=== PATIENT | female | born 1980 | race Caucasian/White ===

== ENCOUNTER 2017-08-19 08:01 | Day surgery (SDC) | payer BC ==
[2017-08-07 13:40] VITALS: BMI 29.0
--- NOTE | 2017-08-07 14:14 | PAT Medication Instructions ---
Service Date Aug 07, 2017. Current Home Medication List Fluconazole (Diflucan), 200 MG PO QPM Levothyroxine Sodium (Synthroid), 175 MCG PO Q2D Levothyroxine Sodium (Levothyroxine Sodium), 1 TAB PO Q2D Linaclotide (Linzess), 1 TAB PEG QAM Montelukast Sodium (Montelukast Sodium), 1 TAB PO QAM Pantoprazole (Protonix), 40 MG PO QPM Terbinafine Hcl (Terbinafine Hcl), 1 TAB PO QAM Medication Instructions For Your Scheduled Surgery - Continue as directed: Levothyroxine Sodium (Levothyroxine Sodium), 1 TAB PO Q2D - Hold the following medications the morning of surgery: Linaclotide (Linzess), 1 TAB PEG QAM Montelukast Sodium (Montelukast Sodium), 1 TAB PO QAM - Take the following medications as scheduled the night before surgery: Terbinafine Hcl (Terbinafine Hcl), 1 TAB PO QAM Pantoprazole (Protonix), 40 MG PO QAM - Take the following medications as scheduled the night before surgery: Pantoprazole (Protonix), 40 MG PO QPM Fluconazole (Diflucan), 200 MG PO QPM If you have any questions please call us at [phone] or [phone] or [phone]
[2017-08-07 14:46] LABS: BASO % 0.5 %; BASO ABS # 0.04 K/uL (0-0.2); COMPLETE YES; EOS % 2.2 %; HEMATOCRIT 42.5 % (37-47); IG% 0.1 %; LYMPH % 27.1 %; MEAN CELL VOLUME 87.8 fL (80-100); MEAN CORPUSCULAR HEMOGLOBIN 30.8 pg (25-34); MEAN CORPUSCULAR HGB CONC 35.1 g/dl (32-36); MEAN PLATELET VOLUME 10.1 fL (7.4-10.4); MONO % 8.5 %; NEUT % 61.6 %; PLATELET COUNT 247 K/uL (130-400); RED BLOOD COUNT 4.84 M/uL (4.2-5.4); WHITE BLOOD COUNT 7.76 K/uL (4.8-10.8)
--- NOTE | 2017-08-07 14:56 | DIAGNOSTIC IMAGING REPORT ---
CHEST PREADMISSION(PA/LAT) CLINICAL HISTORY: PAT preoperative evaluation COMPARISON STUDY: 01/19/2014 FINDINGS: The bones soft tissues and hemidiaphragms are normal. The cardiomediastinal silhouette is normal. The lungs are clear. The pulmonary vasculature is normal. IMPRESSION: Negative chest. The above report was generated using voice recognition software. It may contain grammatical, syntax or spelling errors. Electronically signed by: Todd Rodriguez M.D. 08/07/2017 2:55 PM Dictated Date/Time: 08/07/2017 2:55 PM
[2017-08-07 15:29] LABS: BUN/CREATININE RATIO 14.1 (10-20); CALCIUM 9.3 mg/dl (8.5-10.1); CREATININE 0.78 mg/dl (0.60-1.20); POTASSIUM 3.9 mmol/L (3.5-5.1)
[~2017-08-19] VITALS: Ht 170.2 cm; Wt 85.7 kg
[~2017-08-19 08:01] MED LIST: FLUC200T4 PO; LACTATED RINGER'S 1000ML 1,000 ML IV SCH; LEVO150T PO; LEVO175T3 PO; LINA1CAP2 PEG; MONT1TAB5 PO; PANT40TA PO; TERB250T47 PO
[2017-08-19 08:17] VITALS: BP 128/79; PULSE 72; TEMP 36.9; O2SAT 97; Ht 170.2 cm; Wt 85.7 kg
--- NOTE | 2017-08-19 10:10 | History & Physical Bridge Note ---
H&P Re-Evaluation Bridge Note: I have examined the patient, reviewed the History & Physical and in the interval since the performance of the History & Physical I have noted the following changes of clinical significance: No changes noted SO at bedside all ? answered
[2017-08-19] MEDS ORDERED: FLUMAZENIL 0.1 MG/1 ML 10 ML VIAL IV PRN (10:15)
[2017-08-19] MEDS ORDERED: LABETALOL HCL IV 5 MG/ML 20ML IV PRN (10:15)
[2017-08-19] MEDS ORDERED: ONDANSETRON INJ 2 MG/ML 2 ML VIAL IV PRN ×2 (10:15→11:45)
[2017-08-19] MEDS ORDERED: ATROPINE SULFATE 0.1 MG/ML 5ML SYR IV PRN (10:15)
[2017-08-19] MEDS ORDERED: PROMETHAZINE HCL INJ 12.5 MG in SODIUM CHLORIDE 0.9% 50ML 50 ML IV PRN (10:15)
[2017-08-19] MEDS ORDERED: NALOXONE HCL 0.4 MG/1 ML VIAL/CARP IV PRN (10:15)
[2017-08-19] MEDS ORDERED: EpHEDrine SULFATE INJ 50 MG/ML AMP IV PRN (10:15)
[2017-08-19] MEDS ORDERED: DEXAMETHASONE SOD INJ 4 MG/ML VIAL ONE (10:21)
[2017-08-19] MEDS ORDERED: ONDANSETRON INJ 2 MG/ML 2 ML VIAL ONE (10:21)
[2017-08-19] MEDS ORDERED: LIDOCAINE/EPINEPHRINE 1% 20 ML VIAL ONE (10:21)
[2017-08-19] MEDS ORDERED: LIDOCAINE HCL 2% 2 ML VIAL (20MG/ML) ONE (10:21)
[2017-08-19] MEDS ORDERED: CONRAY 60% 50 ML VIAL ONE (10:21)
[2017-08-19] MEDS ORDERED: PROPOFOL IV EMULSION 10 MG/ML 20 ML VIAL IV ONE (10:21)
[2017-08-19] MEDS ORDERED: CISATRACURIUM BESYLATE IV SOLN 2 MG/ML 10 ML VIAL ONE (10:21)
[2017-08-19] MEDS ORDERED: MIDAZOLAM HCL 1 MG/ML 2ML VIAL ONE (10:22)
[2017-08-19] MEDS ORDERED: FENTANYL CITRATE INJ 50 MCG/1 ML 2 ML VIAL ONE ×2 (10:22→10:52)
[2017-08-19] MEDS ORDERED: SCOPOLAMINE 1.5 MG TDSY TD ONE (10:26)
[2017-08-19] MEDS ORDERED: GLYCOPYRROLATE INJ 0.2 MG/ML VIAL ONE (11:17)
[2017-08-19] MEDS ORDERED: NEOSTIGMINE METHYLSULFATE 5 MG/5 ML SYR ONE (11:17)
[2017-08-19] MEDS ORDERED: KETOROLAC TROMETHAMINE 30 MG/ML VIAL ONE (11:17)
--- NOTE | 2017-08-19 11:23 | DIAGNOSTIC IMAGING REPORT ---
INTRAOPERATIVE CHOLANGIOGRAM CLINICAL HISTORY: CHOLANGIOGRAM COMPARISON STUDY: Abdominal ultrasound August 29, 2016. FLUOROSCOPY TIME: 2.8 seconds. FINDINGS: Single fluoroscopic image of the right upper quadrant was obtained during an intraoperative cholangiogram. There is no biliary ductal dilatation. There is contrast within the duodenum. No filling defect is identified although opacification of the common bile duct is somewhat suboptimal. The common bile duct is normal in appearance. There is apparent irregularity of the intrahepatic bile ducts which are only partially opacified on this exam. IMPRESSION: 1. No evidence of choledocholithiasis. 2. Apparent irregularity of the intrahepatic bile ducts which is likely artifactual and related to incomplete opacification. However, postoperative liver function tests could be assessed and MRCP could be obtained as indicated. Electronically signed by: Vipin Watkins M.D. 08/19/2017 11:22 AM Dictated Date/Time: 08/19/2017 11:18 AM
[2017-08-19] MEDS ORDERED: SODIUM CHLORIDE 0.9% 1000ML 1,000 ML IV SCH (11:35)
--- NOTE | 2017-08-19 11:35 | [facility] Operative Report ---
Operative Report Operative Date Aug 19, 2017. Pre-Operative Diagnosis Chronic cholecystitis. Post-Operative Diagnosis Same as preop. Procedure(s) Performed Laparoscopic Cholecystectomy with Cholangiogram Surgeon Dr. Milton Smith Pressure Control Supervisor Surgeon(s) Zoe Ayala PA-C Estimated Blood Loss 10 ml Findings ccc Specimens A.) Gallbladder and contents Indications ruq pain associated with fatty foods Description of Procedure OR Summary dictated confirmation number [id number] I attest to the content of the Intraoperative Record and any orders documented therein. Any exceptions are noted below.
[2017-08-19] MEDS ORDERED: OXYC-57 PO (11:37)
--- NOTE | 2017-08-19 11:40 | Discharge Instructions ---
Discharge Instructions Date of Service Aug 19, 2017. Admission Reason for Admission: Chronic Right Upper Quadrant Pain Discharge Discharge Diagnosis / Problem: Chronic Right Upper Quadrant Pain Discharge Goals Goal(s): Decrease discomfort, Improve function Activity Recommendations Activity Limitations: as noted below Lifting Limitations: no more than 10 pounds Exercise/Sports Limitations: until after follow-up appointment May Resume Sexual Activity: after follow-up appointment Shower/Bathe: tomorrow Driving or Machine Use: resume 3 days after discharge . Instructions / Follow-Up Instructions / Follow-Up You have steri-strips on your incisions, please leave them on until they fall off themselves. You may shower tomorrow morning. Please follow-up with Dr. Smith in the office in 1-2 weeks. Please call the office at [phone] to make an appointment if you do not have one already. Please call the office with any questions or concerns. Current Hospital Diet Patient's current hospital diet: Discharge Diet Recommended Diet: Regular Diet Procedures Procedures Performed: Laparoscopic Cholecystectomy with Cholangiogram Pending Studies Studies pending at discharge: yes List of pending studies: Pathology report. Medical Emergencies . Who to Call and When: Medical Emergencies: If at any time you feel your situation is an emergency, please call 911 immediately. . Non-Emergent Contact Non-Emergency issues call your: Primary Care Provider, Surgeon Call Non-Emergent contact if: temperature is above 101.5, your pain is not controlled, wound has increased drainage, wound has increased redness . "Provider Documentation" section prepared by Zoe Ayala. . VTE Core Measure Inpt VTE Proph given/why not?: SCD's [place] Drug Monitoring Program Search Results: patient reviewed within database, no issues identified
[2017-08-19] MEDS ORDERED: OXYCODONE/ACETAMINOPHEN 5-325 TAB PO PRN ×2 (11:45)
[2017-08-19] MEDS: FENTANYL CITRATE INJ 50 MCG/1 ML 2 ML VIAL IV PRN ×2 (12:07→12:13)
--- NOTE | 2017-08-19 12:23 | Anesthesiology Progress Note ---
Anesthesia Post Op Note Date & Time Aug 19, 2017 at 12:22 Vital Signs Pain Intensity: 4 Vital Signs Past 12 Hours Date Time Temp Pulse Resp B/P (MAP) Pulse Ox O2 Delivery O2 Flow Rate FiO2 08/19/17 12:20 58 13 115/82 96 Room Air 08/19/17 12:10 60 12 132/100 95 Room Air 08/19/17 12:00 75 16 144/83 98 Oxymask 10 08/19/17 11:50 62 15 142/88 96 Oxymask 10 08/19/17 11:41 36.9 62 13 156/105 93 Oxymask 10 08/19/17 08:17 36.9 72 16 128/79 (95) 97 Room Air Notes Mental Status: alert / awake / arousable, participated in evaluation Pt Amnestic to Procedure: Yes Nausea / Vomiting: adequately controlled Pain: adequately controlled Airway Patency, RR, SpO2: stable & adequate BP & HR: stable & adequate Hydration State: stable & adequate Anesthetic Complications: no major complications apparent
[2017-08-19 12:33] VITALS: BP 111/88; PULSE 66; TEMP 37.3; O2SAT 95
[2017-08-19 12:55] VITALS: BP 115/77; PULSE 70; O2SAT 95
[2017-08-19 13:25] VITALS: BP 110/70; PULSE 80; O2SAT 96
[2017-08-19 13:55] VITALS: BP 125/75; PULSE 75; O2SAT 95
[2017-08-19] MEDS ORDERED: MoRPHine SULFATE 4 MG/ML 1 ML CARP\\VIAL ONE (14:04)
[2017-08-19] MEDS ORDERED: NURSING DECISION MEDICATION ORDER SCH (14:15)
[2017-08-19 14:25] VITALS: BP 110/75; PULSE 89; O2SAT 95
--- NOTE | 2017-08-19 22:50 | OPERATIVE REPORT ---
DATE OF OPERATION: 08/19/2017 SURGEON: Dr. Smith. MAIL SORTER: Zoe Ayala. PREOPERATIVE DIAGNOSIS: Biliary dyskinesia. POSTOPERATIVE DIAGNOSIS: Same. PROCEDURE: Laparoscopic cholecystectomy, intraoperative cholangiogram. SUMMARY: The patient was brought into the operating room theater under general anesthesia. She was prepped with Betadine scrubbing solution and properly draped. We made a small incision above the umbilicus sufficient enough to place a Veress needle insuflated and placed 5 mm trocar. Point of entry inspected and no injury identified. Under direct visualization, we placed a 5 mm epigastric, two 5 mm subcostal ports with preemptive local analgesia 1% Xylocaine without epinephrine. At this point, the gallbladder was identified, there were no adhesions of the gallbladder identified, the gallbladder placed under traction. The jesus hepatis was dissected out, we identified the cystic duct. A small opening in the cystic duct was made. A #4 urethral catheter inserted through a 14 Angiocath through the abdominal wall, into cystic duct. Serial x-rays were taken which showed free flow into the duodenum. No obstruction. At this point, the cystic duct catheter was removed. The cystic duct was doubly clipped and divided. The patient had no real large main hepatic artery and had 1 coursing along the fossa, which were clipped twice and then found another one in the inferior portion. Electrocautery was used to free the gallbladder from the liver bed. Once this was completed, we checked the subhepatic area appeared satisfactory. The gallbladder was placed in an Endopouch and taken out intact through the epigastric port. We opened it up that the patient had typical bilirubinate type stones and bedded on the wall. These were small. At this point, we then checked and found that there was maybe a small bleeder in the epigastric port site, which were controlled with intraabdominal access to the right upper quadrant trocar site and also superiorly the hemostasis was satisfactory when we were done. We suctioned out the subhepatic and suprahepatic area sufficiently. There was no evidence of any bleeding. We then placed a camera in subcostal ports and visualized the umbilical opening. There were no adhesions there. At this point, the wounds were closed with 4-0 Monocryl. Steri-Strips applied. The procedure was tolerated well by the patient and taken to recovery room in good condition. Estimated blood loss approximately 10 mL. I attest to the content of the Intraoperative Record and any orders documented therein. Any exceptions are noted below. MTDD
== END 2017-08-19 14:53 | disposition home or self-care (01) ==
LOC: C.ACU 08:01
PROVIDERS: ATTEND Surgery
DX: K81.1 Chronic cholecystitis (principal); K82.8 Other specified diseases of gallbladder; E89.0 Postprocedural hypothyroidism; Z82.49 Family history of ischemic heart disease and other diseases of the circulatory system; Z90.710 Acquired absence of both cervix and uterus; Z84.1 Family history of disorders of kidney and ureter; Z80.6 Family history of leukemia

== ENCOUNTER → 2018-03-13 | Outpatient (CLI) | payer OTHER ==
[~2018-03-13] MED LIST changes: -LACTATED RINGER'S 1000ML 1,000 ML IV SCH
--- NOTE | 2018-03-13 11:04 | DIAGNOSTIC IMAGING REPORT ---
CT SCAN OF THE PARANASAL SINUSES CLINICAL HISTORY: Chronic sinusitis. Dental pain. COMPARISON STUDY: CT scan of the facial bones dated 01/02/2017. TECHNIQUE: High-resolution CT scan of the paranasal sinuses is performed. Images are reviewed in the axial, sagittal, and coronal planes. IV contrast was not administered for this examination. A dose lowering technique was utilized adhering to the principles of ALARA. CT DOSE: 269.19 mGycm FINDINGS: Maxillary antra: Trace dependent mucosal thickening is seen in the right. Clear on the left. Anterior ethmoid sinuses: Clear. Posterior ethmoid sinuses: Clear. Sphenoid sinuses: Clear. Frontal sinuses: Underpneumatized but clear. Ostiomeatal complexes: Patent bilaterally. Frontoethmoidal and sphenoethmoidal recesses: Patent bilaterally. Carotid arteries: The carotid arteries are covered and without septal attachments. Ethmoid roofs: There is slightly asymmetric elevation of the right ethmoid roof as compared to the left. Nasal turbinates: Normal in appearance. Nasal septum: There is minimal leftward deviation of the bony nasal septum. Optic nerves: Covered. Orbits: The bony orbits are intact. Orbital contents are normal in appearance. Calvarium: The imaged calvarium is normal in appearance Mastoid air cells: Well pneumatized. Brain parenchyma: Partially visualized brain parenchyma is within normal limits. IMPRESSION: No significant paranasal sinus disease. See above. Electronically signed by: Iggy Lamas M.D. 03/13/2018 11:02 AM Dictated Date/Time: 03/13/2018 10:58 AM
== END | disposition home or self-care (01) ==
LOC: C.CTS 10:30
PROVIDERS: ATTEND Physician Assistant
DX: J32.9 Chronic sinusitis, unspecified (principal); K08.89 Other specified disorders of teeth and supporting structures; H69.80 Other specified disorders of Eustachian tube, unspecified ear

== ENCOUNTER 2025-11-10 08:53 | Observation (INO) ==
--- NOTE | 2025-10-04 13:26 | PAT Medication Instructions ---
Medication Instructions Date of Service October 04, 2025 Home Medications Medication Instructions Recorded tirzepatide (weight loss) 2.5 2.5 mg (0.5 mL) subcut Q7D #6 mL 10/03/25 mg/0.5 mL subcutaneous pen injector Medication List: montelukast 10 mg tablet (Singulair) 10 mg PO HS rizatriptan 10 mg tablet (Maxalt) 10 mg PO DIRECTED PRN Migraine Headache lansoprazole 30 mg capsule,delayed release 30 mg PO HS loperamide 2 mg capsule 2 mg PO DAILY PRN Diarrhea famotidine 20 mg tablet 20 mg PO DAILY PRN Acid Reflux tirzepatide (weight loss) 2.5 mg/0.5 mL subcutaneous pen injector 2.5 mg (0.5 mL) subcut Q7D Multi-Collagen 1 tab PO DAILY hydroxyzine HCl 10 mg tablet 10 mg PO DAILY PRN Anxiety levothyroxine 175 mcg tablet (Euthyrox) 175 mcg PO .EVERY OTHER DAY levothyroxine 200 mcg tablet (Euthyrox) 200 mcg PO .EVERY OTHER DAY multivitamin-ferrous fumarate-folic acid 18 mg-400 mcg tablet (Centrum Women) 1 tab PO DAILY MEDICATION INSTRUCTIONS: STOP taking 2 weeks before surgery Multi-Collagen 1 tab PO DAILY DO NOT take the morning of surgery hydroxyzine HCl 10 mg tablet 10 mg PO DAILY PRN Anxiety multivitamin-ferrous fumarate-folic acid 18 mg-400 mcg tablet (Centrum Women) 1 tab PO DAILY loperamide 2 mg capsule 2 mg PO DAILY PRN Diarrhea Take morning of surgery With a small sip of water, OTHERWISE NOTHING TO EAT OR DRINK AFTER MIDNIGHT: levothyroxine 175 mcg/200mcg tablet (Euthyrox) (alternating dosages once daily) famotidine 20 mg tablet 20 mg PO DAILY PRN Acid Reflux rizatriptan 10 mg tablet (Maxalt) 10 mg PO DIRECTED PRN Migraine Headache Take evening before surgery lansoprazole 30 mg capsule,delayed release 30 mg PO HS montelukast 10 mg tablet (Singulair) 10 mg PO HS Other Notes As per nursing PAT call, last dose to be 11/01/25 of: tirzepatide (weight loss) 2.5 mg/0.5 mL subcutaneous pen injector 2.5 mg (0.5 mL) subcut Q7D If you have any questions please call us at [phone] or [phone] or [phone] or [phone]
--- NOTE | 2025-10-14 12:15 | Anesthesiology Consultation ---
Date of Service October 14, 2025 Assessment & Plan (1) Encounter for pre-operative examination: - Infectious disease screening: Per assessment on 10/14/25- No known recent infectious disease contacts or current infectious disease symptoms. - Outpatient joint assessment: Pt currently scheduled for inpatient pathway. If surgeon requests review for outpatient joint pathway, patient is not a recommended candidate for outpatient joint program from anesthesia standpoint based on available information. - GLP-1 medication instructions: Patient informed by PAT to stop 7 days prior to surgery- voiced understanding. DOS 11/10. Advised last dose to be 11/01. - [facility] visit 10/18/25: "Chronic eustachian tube dysfunction in both ears, right symptomatically worse than the left. No improvement with dental guard and nasal steroid spray. Do not see any allergic swelling and there is visible retraction of the drums worse on the right than left. I suspect balloon dilation of the eustachian tubes would be the most effective treatment. Procedure discussed. She will consider this option and call to schedule in the future if she wishes to proceed" - GI note 07/12/25: "Yes" medically cleared for surgery. "There are no GI contraindications for surgery." - PCP visit 10/17/25: "..able to achieve 4-10 METs of activity. According to the RCRI, this number of risk factors stratifies the patient to Class I, which carries with is a 0.4% risk of major CV complications.." - Acceptable risk for surgery pending surgeon-ordered urology ([facility], surgeon obtaining) and oncology ([facility], surgeon obtaining) preop clearances. Chart Review Chart Review: Patient seen in Pre Admission Testing Teaching & Discussion Pre-Anesthesia Teaching/Discussion Notes: Instructed NPO after midnight before surgery,except medications with 15 cc of water. Medication instructions provided according to the PAT guidelines. History Surgery Operation Date: 11/10/25 07:00 Proposed Procedures p Right Total Hip Arthroplasty - Harshad Rodriguez MD Height/Weight Height: 5 ft 7 in Weight: 75.5 kg Allergies Allergy/AdvReac Type Severity Reaction Status Date / Time naltrexone AdvReac Intermediate Flushing, Verified 10/18/25 11:53 hot flashes trazodone AdvReac Intermediate Photosensit Verified 10/18/25 11:53 ivity Medications Home Medications Medication Instructions Recorded Confirmed Last Taken montelukast 10 mg tablet 10 mg PO HS 08/08/18 10/18/25 07/07/23 (Singulair) rizatriptan 10 mg tablet (Maxalt) 10 mg PO DIRECTED PRN Migraine 08/08/18 10/18/25 Unknown Headache lansoprazole 30 mg capsule,delayed 30 mg PO HS 02/26/23 10/18/25 07/07/23 release loperamide 2 mg capsule 2 mg PO DAILY PRN Diarrhea 04/01/24 10/18/25 Unknown famotidine 20 mg tablet 20 mg PO DAILY PRN Acid Reflux 12/10/24 10/18/25 Unknown tirzepatide (weight loss) 2.5 2.5 mg (0.5 mL) subcut Q7D #6 mL 10/03/25 10/18/25 10/04/25 mg/0.5 mL subcutaneous pen injector Multi-Collagen 1 tab PO DAILY 10/04/25 10/18/25 Unknown hydroxyzine HCl 10 mg tablet 10 mg PO DAILY PRN Anxiety 10/04/25 10/18/25 Unknown levothyroxine 175 mcg tablet 175 mcg PO .EVERY OTHER DAY 10/04/25 10/18/25 Unknown (Euthyrox) levothyroxine 200 mcg tablet 200 mcg PO .EVERY OTHER DAY 10/04/25 10/18/25 Unknown (Euthyrox) multivitamin-ferrous 1 tab PO DAILY 10/04/25 10/18/25 Unknown fumarate-folic acid 18 mg-400 mcg tablet (Centrum Women) Past Medical History Medical History Anxiety Bowman's esophagus Blood clot in abdominal vein 2020 s/p abdominal surgery, was on eliquis for short time Chronic sinusitis Environmental allergies GERD (gastroesophageal reflux disease) Graves disease History of thyroid cancer [facility] - monitoring "we did the ablation because we couldn't get it under control but since then I was diagnosed with thyroid cancer" Hx of irritable bowel syndrome Hx of radioactive iodine thyroid ablation r/t hyperthyroidism Hypothyroidism Insomnia Metabolic dysfunction-associated steatotic liver disease (MASLD) Migraines Sickle cell trait Per records- unclear if added inaccurately during 2023 [facility] bariatrics visit; no other notation found per reviewed records to further support this Patient denies TMJ (dislocation of temporomandibular joint) Denies clicking/locking - "Sometimes I grind my teeth, 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" Exercise / Class Metabolic Activity II 4-5 Yardwork/Stairs/Walk up hill Past Family History Family History Other Myocardial infarction No family history of adverse response to anesthesia Past Surgical History Surgical History Adverse effect of anesthesia Slow to wake "but was given twice as much anesthesia" per patient H/O colectomy r/t "IBS and chronic constipation" per patient H/O toe surgery cyst removed x2 (as child) H/O wrist surgery left side, cyst removal x2 H/O: hysterectomy History of appendectomy History of section x2 History of cholecystectomy History of colonoscopy History of cystoscopy stone removal History of esophagogastroduodenoscopy (EGD) History of fasciotomy Right left fasciotomy: LMA#4, [facility] (07/08/23) History of lithotripsy [place] teeth removed Past Anesthesia History No Family Hx of Anesthesia Complications and Other (Slow to wake "but was given twice as much anesthesia" per patient ) History of PONV History of PONV and Hx of Motion Sickness Social History Smoking Status: Never smoker Do You Dip or Chew Tobacco: No Hx Alcohol Use: No Hx Substance Use: No substance use type: does not use Review of Systems Patient denies chest pain, shortness of breath, dyspnea on exertion, fever, chills, cough, wheezing, palpitations. Physical Exam Vital Signs BP 109/71 P 78 TEMP 98.2 SP02 96%RA RESP 16 Physical Full cervical extension range of motion. Full TMJ range of motion. TMD 3 finger breaths Mallampati Score I Dentition: intact, + crowns/implant, broken crown on lower right side Lungs: clear throughout to auscultation Cardiac: regular rate and rhythm, no murmurs noted Spine: normal Extremities: no LE edema Lab Results Anesthesia Preop Results Results Anesthesia Widget: WBC 6.52 K/ul (4.8-10.8) 10/14/25 Hgb 14.2 g/dL (12.0-16.0) 10/14/25 Hct 39.9 % (37.0-47.0) 10/14/25 Plt 245 K/uL (130-400) 10/14/25 Na 138 mmol/L (136-145) 10/14/25 K 3.7 mmol/L (3.5-5.1) 10/14/25 Cl 104 mmol/L (98-107) 10/14/25 CO2 26 mmol/L (21-32) 10/14/25 BUN 15 mg/dl (6-23) 10/14/25 Creat 0.80 mg/dl (0.6-1.2) 10/14/25 Glucose Level 86 mg/dl (70-99(Fasting)) 10/14/25 PT 10.4 Seconds (9.0-12.0) 10/14/25 PTT 27 Seconds (21-31) 10/14/25 INR 1.0 (0.9-1.1) 10/14/25 Urine Color Yellow 10/14/25 Urine Appearance Cloudy (Clear) A 10/14/25 Urine pH 5.5 (4.5-7.5) 10/14/25 Urine Specific [place] 1.024 (1.000-1.030) 10/14/25 Urine Protein Negative (Negative) 10/14/25 Urine Glucose (UA) Negative (Negative) 10/14/25 Urine Ketones Negative (Negative) 10/14/25 Urine Blood Negative (Negative) 10/14/25 Urine Nitrite Negative (Negative) 10/14/25 Urine Bilirubin Negative (Negative) 10/14/25 Urine Urobilinogen Negative (Negative) 10/14/25 Urine Leukocyte Esterase 1+ (Negative) H 10/14/25 Urine WBC (Auto) 6-10 /hpf (0-5) H 10/14/25 Urine RBC (Auto) 3-5 /hpf (0-2) H 10/14/25 Urine Hyaline Casts (Auto) 0-2 /lpf (0-2) 10/14/25 Urine Epithelial Cells (Auto) 0-2 /hpf (0-2) 10/14/25 Urine Bacteria (Auto) 1+ (None Seen) H 10/14/25 Blood Type A Negative 10/14/25 Antibody Screen NEGATIVE 10/14/25 Testing Laboratory Results Per [facility], given negative nitrite and WBC < 10, UA sample does not meet criteria for reflex to urine culture* Electrocardiogram Date: 10/14/25 NSR at 73bpm. NS STA. Chest X-Ray Date: 10/14/25 Findings: + NAD Echocardiogram Date: 03/05/23 EF 65%. No LVH. No significant valvular disease. Insufficient data for PASP estimation. "Normal study"
--- NOTE | 2025-10-18 10:55 | History & Physical Report ---
Date of Service October 18, 2025 Assessment & Plan (1) Osteoarthritis of right hip: Plan: PRE-OP Diagnosis: Right hip osteoarthritis Planned Procedure: Right total hip arthroplasty Plan: Patient is scheduled to undergo this procedure at the [facility] with Dr. Rodriguez on October. Risks and complications of the procedure such as: Infection, bleeding, pain, scarring, nerve blood vessel damage, weakness, wound problems, stiffness, incomplete relief of symptoms, hardware failure, hardware loosening, wear, fracture, tendon or ligament injury, dislocation, leg length inequality, blood clots, embolism, heart attack, stroke and were explained to the patient at her visit today. Informed consent to perform the procedure was obtained. Patient is already met with [facility] on October 03 and while there she obtained a CBC with differential, complete metabolic panel, PT/INR, blood type and screen, urinalysis, urine culture and sensitivity, EKG, and a nasal culture for MRSA. Patient will also need preoperative medical clearance from their primary care provider, urology, and oncology. Patient states that she plans on doing in-home physical therapy for the first 1 to 2 weeks postoperatively with [facility]. Patient states that she will most likely elect to do outpatient physical therapy at [facility]. Patient will need a walker, raised toilet seat, shower chair and a hip kit. During today's visit we reviewed the total hip packet as well as precautions. We discussed discharge planning from the hospital. I provided paperwork to obtain a handicap placard for their vehicle. We discussed lectures offered by [facility] in regards to joint replacement surgery via Zoom. I advised the patient that upon discharge from hospital we will prescribe a narcotic pain medication and anti-inflammatory. Patient will also be on an 81 mg aspirin twice daily for blood clot prevention. Patient will be scheduled for 2-week postoperative follow-up visit with [facility] on November 21. History of Present Illness Chief Complaint: Chief Complaint: Right hip pain Primary Care Provider: Jaqueline Nolasco DO History of Present Illness (including history relevant to procedure): This 45-year-old female presents to the clinic today for her preoperative history and physical. Patient complains of a 1-1/2-year history of groin and posterolateral hip pain. Patient states that she has clicking and popping with range of motion. She has difficulty standing for long periods of time or sitting. She states that at night she is unable to lay on her right hip at all. Patient states she has done physical therapy which made her symptoms worse. She has had between 3 and 4 ultrasound-guided intra-articular injections with steroids without relief. Patient states that she uses Aleve and Tylenol which slightly takes the edge off of her pain. Due to failed conservative management patient is electing to proceed with surgical intervention. Review Of Systems: A 12 point review of systems is performed and is unremarkable except for those things stated in the HPI and past medical history. Past Medical History: Problems: Thyroid cancer Hypercalciuria Sacroiliitis Hot flashes Hypothyroidism Nephrolithiasis Insomnia Degenerative tear of acetabular labrum of right hip Right hip tendinitis Facet arthropathy, lumbar Myofascial pain Changing skin lesion Leg pain, right Allergic rhinitis Muscle sheath hernia Osteoarthritis of right hip H/O colectomy H/O: hysterectomy Bowman esophagus Cervical disc disease Classic migraine GERD (gastroesophageal reflux disease) Weight disorder Procedure History Procedure Procedure Date Comments delivery, x2 1999, 2006 Colonoscopy 08/08/2025 - Impression-patent end to end ileo-colonic anastomosis, characterized by healthy appearing mucosa. Two benign- appearing lymph nodes were visualized endosonographically in the perirectal region Fine needle biopsy performed. Recommendation- Discharge patient to home. Await cytology results. Augmentin 875 mg BID for 5 days. Return to referring physician Shave biopsy 07/28/2025 Flexible sigmoidoscopy 09/01/2024 - Repeat colonoscopy in 10 years. - Tissue designated anastomosis, biopsy:Segments of benign intestinal mucosa with inflammatory and prolapse-related change.COMMENT:There is no evidence of neoplasia. The biopsy does show changes which would be compatible with nonspecific ischemic-like changes seen at anastomotic sites. - - Functional end-to-end ileo-colonic anastomosis, characterized by erosion. Biopsied. - The colon is normal with no findings consistent with what was seen on CT scan. - Internal hemorrhoids. - The examination was otherwise normal on direct and retroflexion views Shave biopsy 09/18/2023 - left back Hernia of muscle through fascia of lower leg 07/08/2023 - Right Leg posterior compartment fascia hernia Shave biopsy of skin 01/30/2022 Colectomy 06/19/2021 - [facility] [place] - Dr. Carrasco Endoscopy and biopsy 07/11/2020 - Your biopsies have returned, showing mild inflammation and continued evidence of changes that suggest underlying Bowman's esophagus. This is nothing to worry about, but I would at this point recommend that you return in 3 years or in July 2023 for a repeat endoscopy. If you continue to follow in the GI Clinic, at that time we can arrange this appointment then, but if you are at that point following with your primary care provider, I would ask that you ensure requesting a referral closer to that time.Olivia Dumont MD Cholecystectomy 01/2018 Hysterectomy 2017 Colonoscopy 07/03/2016 - the examined portion of ileum was normalthe entire examined colon is normalno specimens colledted. Endoscopy of GI tract 07/03/2016 - LA Grade A reflux exophagitisnormal stomachnormal examined duodenumno specimen collected Diagnostic flexible fiberoptic esophagoscopy 2015 - Path - inflammation at esophago-gastric junction, possible early Bowman's; needs another scope in 3 yrs. Endometrial biopsy 10/06/2015 Thyroidectomy, ablasion About 2008 surgery on toe x 3 Before 1999 Ganglion cyst of wrist 1999 Allergies and Sensitivities: naltrexone(hot flashes) traZODone(Photosensitivity) Darvocet-N 50(Vomiting) Allergy Not found in Search(Mice) Cockroach(Sneezing) Dust(Sneezing) Mold(Sneezing) Current Home Meds: (Last Updated 10/18 10:25) amoxicillin-clavulanate (Augmentin 875 mg-125 mg oral tablet) 1 tab PO q12h ciprofloxacin (Cipro 500 mg oral tablet) 500 mg PO q12h Preop UTI famotidine (famotidine 20 mg oral tablet) prn hydrOXYzine (hydrOXYzine hydrochloride 10 mg oral tablet) 1 tab PO tid PRN: NEEDED FOR ANXIETY hydrocortisone topical (hydrocortisone 2.5% topical cream) 1 appl topical tid ketoconazole topical (ketoconazole 2% topical cream) 1 appl topical bid to back lansoprazole (lansoprazole 30 mg oral delayed release capsule) 1 cap PO Daily levothyroxine (levothyroxine 200 mcg (0.2 mg) oral tablet) 200 mcg PO Daily levothyroxine (Euthyrox 175 mcg (0.175 mg) oral tablet) TAKE 1 TABLET BY MOUTH ALTERNATING WITH 200MCG EVERY OTHER DAY loperamide (Imodium 2 mg oral capsule) 2 mg PO Daily PRN: as needed for loose stool meloxicam (meloxicam 15 mg oral tablet) 15 mg PO Daily methocarbamol (Robaxin 500 mg oral tablet) 500 mg PO q8h montelukast (montelukast 10 mg oral tablet) 1 tab PO qPM rizatriptan (rizatriptan 10 mg oral tablet) 10 mg PO ONCE PRN: as needed for migraine headache tirzepatide (Zepbound Pen 5 mg/0.5 mL subcutaneous solution) 5 mg subQ q7days tirzepatide Allergies Allergy/AdvReac Type Severity Reaction Status Date / Time naltrexone AdvReac Intermediate Flushing, Verified 10/11/25 10:36 hot flashes trazodone AdvReac Intermediate Photosensit Verified 10/11/25 10:36 ivity Home Medications Medication Instructions Recorded Confirmed Type montelukast 10 mg tablet 10 mg PO HS 08/08/18 10/11/25 History (Singulair) rizatriptan 10 mg tablet (Maxalt) 10 mg PO DIRECTED PRN Migraine 08/08/18 10/11/25 History Headache lansoprazole 30 mg capsule,delayed 30 mg PO HS 02/26/23 10/11/25 History release loperamide 2 mg capsule 2 mg PO DAILY PRN Diarrhea 04/01/24 10/11/25 History famotidine 20 mg tablet 20 mg PO DAILY PRN Acid Reflux 12/10/24 10/11/25 History tirzepatide (weight loss) 2.5 2.5 mg (0.5 mL) subcut Q7D #6 mL 10/03/25 10/11/25 Rx mg/0.5 mL subcutaneous pen injector Multi-Collagen 1 tab PO DAILY 10/04/25 10/11/25 History hydroxyzine HCl 10 mg tablet 10 mg PO DAILY PRN Anxiety 10/04/25 10/11/25 History levothyroxine 175 mcg tablet 175 mcg PO .EVERY OTHER DAY 10/04/25 10/11/25 History (Euthyrox) levothyroxine 200 mcg tablet 200 mcg PO .EVERY OTHER DAY 10/04/25 10/11/25 History (Euthyrox) multivitamin-ferrous 1 tab PO DAILY 10/04/25 10/11/25 History fumarate-folic acid 18 mg-400 mcg tablet (Centrum Women) Past Med/Surg History Problem List (Updated 10/18/25 @ 10:54 by Josias Santana PA-C) Osteoarthritis of right hip Encounter for pre-operative examination TMJ (temporomandibular joint syndrome) Chronic dysfunction of both eustachian tubes Abnormal finding on imaging Metabolic dysfunction-associated steatotic liver disease (MASLD) Postablative hypothyroidism Papillary carcinoma of thyroid Nephrolithiasis GERD (gastroesophageal reflux disease) Bowman esophagus Anxiety Medical History Hypothyroidism Metabolic dysfunction-associated steatotic liver disease (MASLD) Bowman's esophagus Anxiety TMJ (dislocation of temporomandibular joint) Denies clicking/locking - "Sometimes I grind my teeth, 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" GERD (gastroesophageal reflux disease) History of thyroid cancer [facility] - monitoring "we did the ablation because we couldn't get it under control but since then I was diagnosed with thyroid cancer" Chronic sinusitis Migraines Graves disease Sickle cell trait Per records- unclear if added inaccurately during 2023 [place] bariatrics visit; no other notation found per reviewed records to further support this Patient denies Hx of irritable bowel syndrome Hx of radioactive iodine thyroid ablation r/t hyperthyroidism Insomnia Blood clot in abdominal vein 2020 s/p abdominal surgery, was on eliquis for short time Environmental allergies Surgical History History of fasciotomy Right left fasciotomy: LMA#4, [facility] (07/08/23) Adverse effect of anesthesia Slow to wake "but was given twice as much anesthesia" per patient History of section x2 H/O toe surgery cyst removed x2 (as child) H/O wrist surgery left side, cyst removal x2 History of lithotripsy History of cystoscopy stone removal History of esophagogastroduodenoscopy (EGD) History of colonoscopy History of appendectomy H/O colectomy r/t "IBS and chronic constipation" per patient Grapevine teeth removed History of cholecystectomy H/O: hysterectomy Family History Other Myocardial infarction No family history of adverse response to anesthesia Social History Smoking Status: Never smoker Second Hand Exposure: No; Do You Dip or Chew Tobacco: No; Hx Alcohol Use: No Hx Substance Use: No Preferred Language: Fijian Communication Ability: Effective 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 Extraocular movements are intact Throat: Posterior oropharynx is clear with absence of edema, erythema or exudate. Dentition is appropriate. Cardiac: Regular rate and rhythm with no murmurs or gallops appreciated Lungs: Clear to auscultation throughout with no wheezing, rales or rhonchi Abdomen: Nonobese, nondistended, nontender with normal active bowel sounds Extremities: Right hip; hip flexion is limited to 90 degrees internal rotation to 5 degrees and external rotation to 30 degrees. Positive FRANK test. Positive scour test. Logroll test causes discomfort. Stinchfield test causes pain in the groin. Patient is neurovascularly intact. Her gait is slightly antalgic. Neuro: Cranial nerves II through XII are intact no motor or sensory deficit Skin: Normal in appearance with no open skin areas or discharge Results & Data Diagnostic Findings Studies (relevant to the procedure): MRI obtained on 06/23/[address] Rodriguez shows irregular and narrowed cartilage surface consistent with moderate osteoarthritis
[~2025-11-10 08:53] MED LIST changes: +BUPIVACAINE 0.5 % 5 MG/1 ML PF 10ML VIAL ONE; -FLUC200T4 PO; -LEVO150T PO; -LEVO175T3 PO; -LINA1CAP2 PEG; +MIDAZOLAM HCL 1 MG/ML 2ML VIAL ONE; -MONT1TAB5 PO; -PANT40TA PO; +ROPIVACAINE 0.5% HCL/PF 246 MG, Ketorolac (*for OR use only*) 30 MG, EPINEPHrine 30MG/3... INFIL SCH; -TERB250T47 PO
[2025-11-10] MEDS: LR 60ML/HR IV SCH (09:36)
[2025-11-10] MEDS: FAMOTIDINE 20 MG TAB PO SCH (09:38)
[2025-11-10] MEDS: ACETAMINOPHEN 500 MG TAB PO SCH ×2 (09:39→15:35)
[2025-11-10] MEDS: CeleBREX 200 MG CAP PO SCH (09:39)
[2025-11-10] MEDS: LR 500ML BOLUS, THEN 15ML/HR IV SCH (09:48)
[2025-11-10] MEDS: dexAMETHasone**PF** 10 MG/ML VIAL IV SCH (09:49)
[2025-11-10] MEDS ORDERED: PROPOFOL IV EMULSION 10 MG/ML 20 ML VIAL IV ONE ×3 (09:53→11:46)
[2025-11-10] MEDS ORDERED: ONDANSETRON INJ 2 MG/ML 2 ML VIAL ONE (09:53)
[2025-11-10] MEDS ORDERED: DEXAMETHASONE SOD INJ 4 MG/ML VIAL ONE (09:53)
--- NOTE | 2025-11-10 10:26 | History & Physical Bridge Note ---
Date of Service November 10, 2025 History & Physical Bridge Note I have examined the patient, reviewed the History & Physical and in the interval since the performance of the History & Physical I have noted the following changes of clinical significance: no changes noted
[2025-11-10] MEDS ORDERED: ONDANSETRON INJ 2 MG/ML 2 ML VIAL IV PRN ×2 (10:42→12:36)
[2025-11-10] MEDS ORDERED: ATROPINE SULFATE 0.1 MG/ML 10ML SYR IV PRN (10:42)
[2025-11-10] MEDS: TRANEXAMIC ACID 1,000 MG **IV Pre-op IV SCH (10:43)
[2025-11-10] MEDS ORDERED: MIDAZOLAM HCL 1 MG/ML 2ML VIAL ONE (11:05)
[2025-11-10] MEDS: ROPIV 0.5% 246mg, Ketorolac 30mg, EPINEPHrine 0.5mg in NSS INFIL SCH (11:32)
[2025-11-10] MEDS: ORTHO JOINT ANESTHETIC ONE (11:33)
[2025-11-10] MEDS ORDERED: LABETALOL HCL IV 5 MG/ML 20ML IV ONE (11:44)
[2025-11-10] MEDS ORDERED: PHENYLEPHRINE 100MCG/ML 5ML SYR ONE (12:22)
--- NOTE | 2025-11-10 12:32 | Operative Report ---
Post Operative Report Pre & Post Diagnosis Operation Date: 11/10/25 10:50 Pre-Op Diagnosis: Right hip osteoarthritis. Post-Op Diagnosis: Right hip osteoarthritis. I identified the patient and participated in the time-out.: Yes Procedure Operation Date: 11/10/25 10:50 Actual Procedures p Right Total Hip Arthroplasty(Right) - Harshad Rodriguez MD Surgeon Harshad Rodriguez MD Systems Admin CASSIUS Santana PA-C. No resident or fellow was available to assist. Estimated Blood Loss 100 Findings Consistent with Post-Op Diagnosis Specimens Right femoral head Anesthesia Type Spinal MAC Complications none Disposition Disposition: Recovery Room Indications 45-year-old female with right hip pain refractory to conservative management. X-rays demonstrate joint space narrowing and subchondral sclerosis. MRI was obtained which confirmed diagnosis of osteoarthritis in the right hip. Having failed extensive nonsurgical management she was now a candidate for surgery. I had a long discussion with her about the risks and benefits of surgery, alt ernatives to surgery, and expected outcomes. She understands because of her young age that she is at risk for failure due to wear and could need a revision in the future. After reviewing all of her options she elected to proceed with surgery. All questions were answered. Informed consent was signed. Description of Procedure Patient was identified in the preoperative holding area where the surgical site, right hip, was marked. A spinal anesthetic was placed, then the patient was brought back to the main operating room, placed in the operating table and moved into the lateral decubitus position. Axillary roll was placed. All bony prominences were padded. Perioperative antibiotics and tranexamic acid 1 gram IV were administered. The operative extremity was prepped and draped in the normal sterile fashion. Prior to incision a multidisciplinary timeout was called. All in the room were in agreement. We began by making an incision for a posterior approach to the hip. We dissected down through subcutaneous tissues to the level of the fascia. The fascia was incised in line with the incision. Charnley bow was placed. Fatty tissue was reflected posteriorly off the back of the greater trochanter to expose the piriformis and short external rotators of the hip. Quadratus femoris was taken off the femur subperiosteally. The piriformis and short external rotators were dissected off the posterior aspect of the hip. A box cut was made in the capsule. Inferior hip capsule was released off the femur. The femoral head was dislocated. The femoral neck cut was made at our preoperative template. The acetabulum was then exposed. The labrum was sharply excised. Contents of the cotyloid fossa were removed with electrocautery. We then began reaming at a size 8 mm less than our preoperative template. We reamed up by 1 [address] the way up to a size 52 mm cup. This gave us good bleeding cancellus bone circumferentially. The acetabulum was then irrigated out and dried. The real [place] Gription cup was then impacted down into position with 40 degrees of lateral opening and 20 degrees of anteversion. A single cancellous bone screw was placed up into the ilium. Excellent fixation was obtained. A trial liner for a 32 mm femoral head was then placed. Osteophytes from the anterior acetabular rim were removed with an osteotome and rongeur. Next we turned our attention to the femur. The lateral neck was removed with a box osteotome. Intramedullary guide was used to establish the intramedullary ca nal. We then broached all the way up to a size 3. We began trialing with a standard offset neck and a +5 head. Hip was reduced. Leg lengths were symmetric. The hip was stable in extension and external rotation, and stable in the sleeper position. At 90 degrees of hip flexion the hip could be internally rotated 65 degrees before levering out of the cup. I was very happy with the stability exam. Therefore the hip was dislocated and the femoral trial was removed. The acetabulum was re-exposed, and the trial liner was removed. [place] hole eliminator screw was placed. An Altrx polyethylene liner for a 32 mm femoral head was then impacted into the shell. The locking mechanism was checked to ensure that it had engaged which it had. The femur was re-exposed. The femoral canal was irrigated and dried. The real Actis femoral stem was opened up. This was impacted down into position. The femoral head was opened up and gently impacted down onto the trunnion. The hip was atraumatically reduced. Another 1 gram of IV tranexamic acid was started prior to closure. The wound was irrigated out with sterile Betadine solution. The periarticular injection cocktail was then placed. The short external rotators, piriformis, and posterior capsule were repaired through drill holes in the greater trochanter using #2 Vicryl. The fascia was run with a looped #1 PDS. The subcutaneous l jaymie was closed with #1 PDS. The dermal layer was closed with 2-0 Vicryl. Zip line was used for the skin followed by a Silverlon dressing. A compressive dressing was then placed. The patient was then rolled supine. Leg lengths were rechecked and were symmetric. An abduction pillow was placed. Sedation was lifted and the patient was transferred to the recovery room in stable condition. Summary of implants: Depuy emphasis acetabular 3-hole cup, 52 mm outer diameter [place] Cancellous bone screw, 6.5 x 40 mm Emphasis AOX polyethylene Acetabular Liner, Neutral, with a 32 mm inner diameter DePuy Actis collared cementless Femoral stem, 12/14 taper, size 3 standard offset 32 mm ceramic femoral head with +5 offset Postoperative course: Patient will be admitted overnight from the recovery room. Patient will be weightbearing as tolerated with posterior hip precautions. Aspirin for DVT prophylaxis I attest to the content of the Intraoperative Record and any orders documented therein. Any exceptions are noted below.
--- NOTE | 2025-11-10 12:34 | Operative Report ---
Post Operative Report Pre & Post Diagnosis Operation Date: 11/10/25 10:50 Pre-Op Diagnosis: Right hip osteoarthritis. Post-Op Diagnosis: Right hip osteoarthritis. I identified the patient and participated in the time-out.: Yes Procedure Operation Date: 11/10/25 10:50 Actual Procedures p Right Total Hip Arthroplasty(Right) - Harshad Rodriguez MD Surgeon Harshad Rodriguez MD Regrind Mill Operator CASSIUS Santana PA-C. No resident or fellow was available to assist. Estimated Blood Loss 100 Findings Consistent with Post-Op Diagnosis Specimens femoral head Description of Procedure I was present during the entire case assisting with positioning, prepping, draping, wound retraction, wound closure, dressing and abduction pillow placement. No fellow present. Please see Dr. Rodriguez operative note for specifics of the case. I attest to the content of the Intraoperative Record and any orders documented therein. Any exceptions are noted below.
[2025-11-10] MEDS ORDERED: diphenhydrAMINE 50 MG/ML VIAL IV PRN (12:36)
[2025-11-10] MEDS ORDERED: ALUMINUM/MAGNESIUM SUSP 30 ML UDC PO PRN (12:36)
[2025-11-10] MEDS ORDERED: MAGNESIUM HYDROXIDE SUSP 30 ML UDC PO PRN (12:36)
[2025-11-10] MEDS ORDERED: NALOXONE HCL 0.4 MG/1 ML VIAL/CARP IV PRN (12:36)
[2025-11-10] MEDS ORDERED: METOCLOPRAMIDE HCL INJ 5 MG/ML 2 ML VIAL IV PRN (12:36)
--- NOTE | 2025-11-10 13:15 | XRay Report ---
SINGLE VIEW PELVIS CLINICAL HISTORY: Postoperative examination. FINDINGS: An AP portable view of the pelvis is compared to study dated 10/14/2025. A bipolar right hi p arthroplasty is in near-anatomic alignment. A single cortical lag screw is seen transfixing the hailey tabular cup. No acute fracture is identified. Subcutaneous gas an soft tissue swelling overlying the right hip are expected postsurgical changes. There is mild degenerative sclerosis in the sacroiliac j oints. Mild degenerative change is noted in the left hip. Clips and phleboliths project over the pelv is. IMPRESSION: Expected postoperative findings status post right hip arthroplasty. No acute fracture is seen. ACT 112: Negative or not required by law. Electronically signed by: Iggy Lamas M.D. 11/10/2025 1:13 PM
[2025-11-10] MEDS ORDERED: RIZATRIPTAN BENZOATE 10 MG TAB PO PRN (14:39)
[2025-11-10] MEDS ORDERED: FAMOTIDINE 20 MG TAB PO PRN (14:39)
[2025-11-10] MEDS ORDERED: [UNRECOGNIZED DRUG - OTHER] SQ SCH (14:39)
[2025-11-10] MEDS ORDERED: TIRZEPATIDE 2.5 MG/0.5 ML SQ SCH (14:39)
[2025-11-10] MEDS ORDERED: LOPERAMIDE HCL 2 MG CAP PO PRN (14:39)
[2025-11-10] MEDS ORDERED: LEVOTHYROXINE SODIUM 200 MCG TABLET PO SCH (14:39)
[2025-11-10] MEDS: SODIUM CHLORIDE 0.9% 1,000 ML IV SCH (15:34)
[2025-11-10] MEDS: KETOROLAC TROMETHAMINE 15 MG/ML VIAL IV SCH (15:35)
[2025-11-10] MEDS: Scopolamine CHECK PATCH PLACEMENT SCH (15:43)
[2025-11-10] MEDS: LEVOTHYROXINE SODIUM 175 MCG TABLET PO SCH (18:14)
[2025-11-10] MEDS: MONTELUKAST SODIUM 10 MG TABLET PO SCH (20:49)
[2025-11-10] MEDS: SENNA 8.6 MG TAB PO SCH (20:49)
[2025-11-10] MEDS: DOCUSATE SODIUM 100 MG CAP PO SCH (20:49)
[2025-11-11 07:05] LABS: Hematocrit (blood only) 31.2 % (37.0-47.0); Hemoglobin 10.9 g/dL (12.0-16.0); Immature Granulocytes # (auto) 0.04 K/uL (0.01-0.20); Immature Granulocytes % (auto) 0.3 %; Mean Corpuscular Hemoglobin 31.1 pg (25.0-34.0); Mean Corpuscular Volume 88.9 fL (80.0-100.0); Platelet Count 228 K/uL (130-400); RDW Standard Deviation 43.7 fL (36.4-46.3); Red Blood Count 3.51 M/uL (4.20-5.40); White Blood Count 13.33 K/ul (4.8-10.8)
[2025-11-11 07:24] LABS: Anion Gap 6.0 (3-11); Blood Urea Nitrogen 12.0 mg/dl (6-23); Calcium 8.4 mg/dl (8.6-10.3); Carbon Dioxide 24.0 mmol/L (21-32); Chloride 109.0 mmol/L (98-107); Creatinine Clr Calc Pharmacy 95.3 ml/min; Glucose 142.0 mg/dl (70-99(Fasting)); Potassium 3.7 mmol/L (3.5-5.1); Sodium 139.0 mmol/L (136-145)
[2025-11-11 08:12] VITALS: BP 98/66; PULSE 63; RESP 13; TEMP 97.9; O2SAT 97
[2025-11-11] MEDS: dexAMETHasone 10 MG in SYRINGE 0 ML IV SCH (09:27)
[2025-11-11] MEDS: MULTIVITAMIN TAB PO SCH (09:30)
[2025-11-11] MEDS: ASPIRIN 81 MG ECTAB PO SCH (09:30)
[2025-11-11] MEDS: CEROVITE ADV FORMULA TAB PO SCH (09:30)
--- NOTE | 2025-11-11 10:06 | Discharge Summary ---
Date of Service November 11, 2025 Admission HPI Per Admitting Provider History of Present Illness (including history relevant to procedure): This 45-year-old female presents to the clinic today for her preoperative history and physical. Patient complains of a 1-1/2-year history of groin and posterolateral hip pain. Patient states that she has clicking and popping with range of motion. She has difficulty standing for long periods of time or sitting. She states that at night she is unable to lay on her right hip at all. Patient states she has done physical therapy which made her symptoms worse. She has had between 3 and 4 ultrasound-guided intra-articular injections with steroids without relief. Patient states that she uses Aleve and Tylenol which slightly takes the edge off of her pain. Due to failed conservative management patient is electing to proceed with surgical intervention. Review Of Systems: A 12 point review of systems is performed and is unremarkable except for those things stated in the HPI and past medical history. Past Medical History: Problems: Thyroid cancer Hypercalciuria Sacroiliitis Hot flashes Hypothyroidism Nephrolithiasis Insomnia Degenerative tear of acetabular labrum of right hip Right hip tendinitis Facet arthropathy, lumbar Myofascial pain Changing skin lesion Leg pain, right Allergic rhinitis Muscle sheath hernia Osteoarthritis of right hip H/O colectomy H/O: hysterectomy Bowman esophagus Cervical disc disease Classic migraine GERD (gastroesophageal reflux disease) Weight disorder Procedure History Procedure Procedure Date Comments delivery, x2 1999, 2006 Colonoscopy 08/08/2025 - Impression-patent end to end ileo-colonic anastomosis, characterized by healthy appearing mucosa. Two benign- appearing lymph nodes were visualized endosonographically in the perirectal region Fine needle biopsy performed. Recommendation- Discharge patient to home. Await cytology results. Augmentin 875 mg BID for 5 days. Return to referring physician Shave biopsy 07/28/2025 Flexible sigmoidoscopy 09/01/2024 - Repeat colonoscopy in 10 years. - Tissue designated anastomosis, biopsy:Segments of benign intestinal mucosa with inflammatory and prolapse-related change.COMMENT:There is no evidence of neoplasia. The biopsy does show changes which would be compatible with nonspecific ischemic-like changes seen at anastomotic sites. - - Functional end-to-end ileo-colonic anastomosis, characterized by erosion. Biopsied. - The colon is normal with no findings consistent with what was seen on CT scan. - Internal hemorrhoids. - The examination was otherwise normal on direct and retroflexion views Shave biopsy 09/18/2023 - left back Hernia of muscle through fascia of lower leg 07/08/2023 - Right Leg posterior compartment fascia hernia Shave biopsy of skin 01/30/2022 [place] [facility] [place] Endoscopy and biopsy 07/11/2020 - Your biopsies have returned, showing mild inflammation and continued evidence of changes that suggest underlying Bowman's esophagus. This is nothing to worry about, but I would at this point recommend that you return in 3 years or in July 2023 for a repeat endoscopy. If you continue to follow in the GI Clinic, at that time we can arrange this appointment then, but if you are at that point following with your primary care provider, I would ask that you ensure requesting a referral closer to that time.Olivia Dumont MD Cholecystectomy 01/2018 Hysterectomy 2017 Colonoscopy 07/03/2016 - the examined portion of ileum was normalthe entire examined colon is normalno specimens colledted. Endoscopy of GI tract 07/03/2016 - LA Grade A reflux exophagitisnormal stomachnormal examined duodenumno specimen collected Diagnostic flexible fiberoptic esophagoscopy 2015 - Path - inflammation at esophago-gastric junction, possible early Bowman's; needs another scope in 3 yrs. Endometrial biopsy 10/06/2015 Thyroidectomy, ablasion About 2008 surgery on toe x 3 Before 1999 Ganglion cyst of wrist 1999 Allergies and Sensitivities: naltrexone(hot flashes) traZODone(Photosensitivity) Darvocet-N 50(Vomiting) Allergy Not found in Search(Mice) Cockroach(Sneezing) Dust(Sneezing) Mold(Sneezing) Current Home Meds: (Last Updated 10/18 10:25) amoxicillin-clavulanate (Augmentin 875 mg-125 mg oral tablet) 1 tab PO q12h ciprofloxacin (Cipro 500 mg oral tablet) 500 mg PO q12h Preop UTI famotidine (famotidine 20 mg oral tablet) prn hydrOXYzine (hydrOXYzine hydrochloride 10 mg oral tablet) 1 tab PO tid PRN: NEEDED FOR ANXIETY hydrocortisone topical (hydrocortisone 2.5% topical cream) 1 appl topical tid ketoconazole topical (ketoconazole 2% topical cream) 1 appl topical bid to back lansoprazole (lansoprazole 30 mg oral delayed release capsule) 1 cap PO Daily levothyroxine (levothyroxine 200 mcg (0.2 mg) oral tablet) 200 mcg PO Daily levothyroxine (Euthyrox 175 mcg (0.175 mg) oral tablet) TAKE 1 TABLET BY MOUTH ALTERNATING WITH 200MCG EVERY OTHER DAY loperamide (Imodium 2 mg oral capsule) 2 mg PO Daily PRN: as needed for loose stool meloxicam (meloxicam 15 mg oral tablet) 15 mg PO Daily methocarbamol (Robaxin 500 mg oral tablet) 500 mg PO q8h montelukast (montelukast 10 mg oral tablet) 1 tab PO qPM rizatriptan (rizatriptan 10 mg oral tablet) 10 mg PO ONCE PRN: as needed for migraine headache tirzepatide (Zepbound Pen 5 mg/0.5 mL subcutaneous solution) 5 mg subQ q7days tirzepatide Admission Exam Per Admitting Provider Initial Wt: 10/14 76.0 kg 167 lb Physical Exam: (relevant to the procedure, including heart and lung evaluation) General: Alert and oriented x 3 with proper grooming and hygiene Eyes: Pupils are equal and reactive to light with accommodation. Extraocular movements are intact Throat: Posterior oropharynx is clear with absence of edema, erythema or exudate. Dentition is appropriate. Cardiac: Regular rate and rhythm with no murmurs or gallops appreciated Lungs: Clear to auscultation throughout with no wheezing, rales or rhonchi Abdomen: Nonobese, nondistended, nontender with normal active bowel sounds Extremities: Right hip; hip flexion is limited to 90 degrees internal rotation to 5 degrees and external rotation to 30 degrees. Positive FRANK test. Positive scour test. Logroll test causes discomfort. Stinchfield test causes pain in the groin. Patient is neurovascularly intact. Her gait is slightly antalgic. Neuro: Cranial nerves II through XII are intact no motor or sensory deficit Skin: Normal in appearance with no open skin areas or discharge Principal Diagnosis Right hip osteoarthritis Discharge Exam Right hip: Outer dressing was removed. Silverlon is clean dry intact and left in place. Patient is able to easily transition from a seated to a standing position with the assistance of her walker. She is able to perform an active straight leg raise test. She is able to actively dorsi and plantarflex her foot. Her quad strength is 4+ out of 5. She tolerates passive hip flexion near 80 degrees but does feel slight pulling sensation with light passive internal and external rotation. She has no discomfort with logroll testing. She is neurovascularly intact in the right lower extremity. Discharge Data Allergies Allergy/AdvReac Type Severity Reaction Status Date / Time naltrexone AdvReac Intermediate Flushing, Verified 11/10/25 09:04 hot flashes trazodone AdvReac Intermediate Photosensit Verified 11/10/25 09:04 ivity Procedures Performed Operation Date: 11/10/25 10:50 Actual Procedures p Right Total Hip Arthroplasty(Right) - Harshad Rodriguez MD Hospital Course (1) S/P total hip arthroplasty: Patient had an uneventful overnight stay following right total hip arthroplasty. She is very pleased with the results of the surgery. She states that her hip feels much better than it did prior to surgery. She is hoping to be discharged home later this morning and is planning on doing in-home physical therapy for the first 2 weeks postoperatively. Total hip precautions reviewed Weightbearing as tolerated with walker assistance PT/OT Pain control p.o. medication DVT prophylaxis with Xarelto and YEN stockings Abduction pillow use x 6 weeks Ice with easy wrap Keep Silverlon dressing in place until follow up Plan is to discharge home today with in-home physical therapy for the first 2 weeks Follow-up at [facility] orthopedics as previously scheduled With questions contact our clinic at [phone] Total Time Total Time Spent Total Time Spent (In Minutes): 25 mins Discharge Plan Discharge Items Patient Disposition: Home - Home Health Services Reason For Visit: post surgical care Discharge Diagnosis: s/P Right total hip arthroplasty Activity: As commented below Lifting: None Bathing: Keep incision dry Bathing Comment: May shower today Sexual Activity: Wait until after follow-up appointment Exercise/Sports: Wait until after follow-up appointment Driving/Machine Use: No driving until cleared by student development specialist Weightbearing: Right weightbearing Weightbearing Comment: as tolerate w/ walker Non-emergency contact: Surgeon Call non-emergency contact if: you have any medication questions, your pain is not controlled, your temperature is above 101.5, your wound has increased drainage and your wound pain has increased Follow-up/Referrals: Jaqueline Pereyra DO [Primary Care Provider] - Diet: Regular Addtl Attending Provider Instructions: Post-operative Instructions Dear Patient and Family/Friends, Before you are discharged from the hospital, it is important to know what to expect when you get home after surgery. To that end, we have created this sheet of discharge instructions which covers many commonly asked questions. Make sure you go through this sheet in its entirety with your nurse before you are discharged. Please note that we will go over the specifics of your surgery and recovery when you return for your first post-operative visit. Sincerely, Dr. Rodriguez Medications 1. Oxycodone 5 mg: Take 1 to 2 tablets every 4-6 hours as needed for postoperative pain control. A prescription for this medication will be sent to your pharmacy. 2. Celebrex 200 mg: Take 1 tablet twice daily for the first 30 days postoperatively for blood clot prevention. Please purchase this medication. 3. Xarelto 15 mg: Take 1 tablet daily for the first 30 days postoperatively for blood clot prevention. 4. Extra strength Tylenol 500 mg: Take 2 tablets every 6-8 hours as needed for additional pain relief. Please purchase the medication. Pain Expect to be in a fair amount of pain after surgery. Remember, our goal is not to eliminate your pain, but to make it tolerable. It is a good idea to stay ahead of your pain by taking the medications you were prescribed once you get home. Typically, the pain starts improving 3-7 days after surgery. You should start weaning off the narcotic pain medication (oxycodone, hydrocodone, hydromorphone, morphine) as soon as your pain improves. Please call our office if your pain is not adequately controlled. Ice Ice your operative site at least 5 times a day for 15-30 minutes at a time. Make sure you have a thin cloth between the ice or cooling unit and your skin to prevent maya bite. This is especially important if you received a nerve block. Continue icing your operative site for the first 5-7 days after surgery, then as needed. Diet/Nausea/Vomiting Start by drinking clear liquids and eating crackers. If you can tolerate this, then you may resume your normal diet. If you feel nauseated or vomit, take Zofran/ondansetron (if prescribed). Please call our office if you have intractable nausea or vomiting, or, if after hours, you may go to the Emergency Room for help. Constipation Constipation is a common side effect of narcotic pain medication. If you have not had a bowel movement within 2 days after surgery, we recommend purchasing an over the counter laxative such as Milk of Magnesia, Dulcolax, or Miralax from a local pharmacy, and taking it as instructed. Call our clinic if any questions. Nerve block The anesthesia team sometimes places a nerve block to help with post-operative pain control. This results in significant numbness and inability to move the extremity. The nerve block usually wears off in 8-12 hours, but sometimes can last up to 24 hours. Please call our office if you are still unable to move your extremity after 24 hours, unless you received a pain pump to take home. Nerve blocks typically wear off quickly, so start taking pain medication as soon as you start feeling soreness near your surgical site. Weight bearing and Range of Motion. Do not bear any weight through your operative extremity immediately after surgery. If you had upper extremity surgery, do not lift anything with that arm. If you are in a knee brace, keep it locked in place until your follow-up. We will discuss your weight bearing, range of motion, and lifting restrictions in detail at your first post-operative appointment. Continuous Passive Motion (CPM) Machine If you were prescribed a CPM machine, it will start after your first post- operative appointment, at which time we will give you instructions on the range of motion settings and duration of treatment Physical therapy You will be given a prescription for physical therapy or occupational therapy at your first post-operative appointment. Typically, patients start therapy within 1 week of surgery Wound care and showering We will inspect your wound at your first post-operative visit, and may do a dressing change at that time. Most patients will be in a water-proof dressing that is removed 14 days after surgery. It is normal to see some dried blood on the dressing. Do not remove your dressing, paper strips or sutures yourself unless you are given permission. Showering is allowed the day after surgery. Do not scrub or remove any dressings. The wound should not be submerged underwater (i.e. in a bathtub or pool) until 4 weeks after surgery YEN stockings If you were given white stockings, these are to be worn at all times except to shower (on both legs) for the first 2 weeks after surgery. Driving You may not drive while taking narcotic pain medication or while in a cast, splint, sling or brace. You, the patient, need to make the final determination about when you are safe to drive, however, the earliest you may consider driving after surgery is below: Hand/Wrist/Elbow Surgery: 3 days Shoulder Surgery: 2 weeks Hip,/Knee/Ankle Surgery: 4 weeks Fracture repair: 6 weeks Return to Work Your return to work depends on what surgery was done and what type of work you do. Please bring any paperwork your employer needs completed to your first post-operative visit. Also, bring a description of your job duties, as this helps us to understand what risks you may face at work. Travel Avoid long distance travel (greater than 1 hour) in airplanes and cars for the first 6 weeks after surgery. If you must travel, you need to have a Doppler ultrasound done before you travel to rule out a blood clot in your legs. Follow-up You should have a follow-up appointment already scheduled 1-2 days after surgery. If not, please contact our office to make this appointment before you leave the hospital. When to call the office It is normal to have swelling and bruising in the limb that was operated on. This will improve with time. It is also normal to have fevers for the first 2 days after surgery. Reasons you should call your doctor include: Uncontrolled pain; Nausea, vomiting, or constipation that does not improve with medication; Fevers over 101.5, chills, sweats; Drainage or bleeding from the wound; Foul odor; Spreading areas of redness; Any other concerns. Contact Information Please call Dr. Rodriguez's office at [phone] with any concerns. Pending Studies at Discharge: No Stand-Alone Forms: [facility] Medications and DC Order Prescriptions: New celecoxib [Celebrex] 200 mg Capsule 200 mg PO BID 30 Days Qty: 60 0RF acetaminophen [Tylenol Extra Strength] 500 mg Tablet 1,000 mg PO Q8 30 Days Qty: 180 0RF oxycodone 5 mg Tablet 5 - 10 mg PO Q4H MDD Max 6/day PRN (Reason: Post op pain control) Qty: 28 0RF Xarelto 15 mg tablet 15 mg PO DAILY 30 Days Qty: 30 0RF Rx Instructions: must administer with evening meal Continued loperamide 2 mg capsule 2 mg PO DAILY PRN (Reason: Diarrhea) famotidine 20 mg tablet 20 mg PO DAILY PRN (Reason: Acid Reflux) montelukast [Singulair] 10 mg tablet 10 mg PO HS rizatriptan [Maxalt] 10 mg tablet 10 mg PO DIRECTED PRN (Reason: Migraine Headache) lansoprazole 30 mg capsule,delayed release(DR/EC) 30 mg PO HS hydroxyzine HCl 10 mg Tablet 10 mg PO DAILY PRN (Reason: Anxiety) Centrum Women 18-400 mg-mcg Tablet 1 tab PO DAILY Multi-Collagen 1 tab PO DAILY levothyroxine [Euthyrox] 175 mcg tablet 175 mcg PO .EVERY OTHER DAY Rx Instructions: 175 mcg alternating with 200 mcg qod orally daily; levothyroxine [Euthyrox] 200 mcg tablet 200 mcg PO .EVERY OTHER DAY Rx Instructions: 200 mcg alternating with 175 mcg tab orally QOD; Zepbound 2.5 mg/0.5 mL pen injector 2.5 mg subcut Q7D Patient Comments: "when I remember" Rx Instructions: Tuesdays Discharge Orders: Discharge Order (Routine); Ordered 11/11/25 Ordered By: Josias Santana Admission Data Admit Date/Time: 11/10/25 12:36 Attending Provider: Harshad Rodriguez Admit Provider: Harshad Rodriguez Primary Care Provider: Jaqueline Pereyra Other Providers: [facility],Home Health Other Interventions: Discharge Summary Assessment (RN) Last Done: 11/11/25 09:45
--- NOTE | 2025-11-11 10:06 | Orthopedic Progress Note ---
Date of Service November 11, 2025 Assessment & Plan (1) S/P total hip arthroplasty: Plan: Total hip precautions reviewed Weightbearing as tolerated with walker assistance PT/OT Pain control p.o. medication DVT prophylaxis with Xarelto and YEN stockings Abduction pillow use x 6 weeks Ice with easy wrap Keep Silverlon dressing in place until follow up Plan is to discharge home today with in-home physical therapy for the first 2 weeks Follow-up at [facility] orthopedics as previously scheduled With questions contact our clinic at [phone] Admission and Anticipated Discharge Date Admission Date: November 10, 2025 Subjective This 45-year-old female is seen today day 1 status post right total hip arthroplasty. Patient states she is doing very well. She states she has been able to participate with PT and OT without difficulty. She is hoping to be discharged home later this morning. Currently she denies chest pain, shortness of breath, fever, chills, sweats, nausea, vomiting, diarrhea, difficulty voiding or numbness or tingling in her right lower extremity. Review of Systems Review of Systems: All systems reviewed & are unremarkable except as noted in Subjective Physical Exam Physical Exam: Right hip: Outer dressing was removed. Silverlon is clean dry intact and left in place. Patient is able to easily transition from a seated to a standing po sition with the assistance of her walker. She is able to perform an active straight leg raise test. She is able to actively dorsi and plantarflex her foot. Her quad strength is 4+ out of 5. She tolerates passive hip flexion near 80 degrees but does feel slight pulling sensation with light passive internal and external rotation. She has no discomfort with logroll testing. She is neurovascularly intact in the right lower extremity. Results & Data Vital Signs (Past 12 Hours) Vital Signs Temp Pulse Pulse Resp BP Pulse Ox O2 Del Method 11/11/25 08:06 36.6 C 63 13 98/66 L 97 Room Air 11/11/25 07:18 36.8 C 66 16 95/58 L 99 Room Air 11/11/25 06:25 110/66 11/11/25 04:31 36.7 C 81 18 92/48 L 97 Room Air 11/11/25 00:10 36.6 C 73 18 98/59 L 96 Room Air Diagnostic Findings Laboratory Results WBC 13.33 K/ul (4.8-10.8) H 11/11/25 06:35 RBC 3.51 M/uL (4.20-5.40) L 11/11/25 06:35 Hgb 10.9 g/dL (12.0-16.0) L 11/11/25 06:35 Hct 31.2 % (37.0-47.0) L 11/11/25 06:35 MCV 88.9 fL (80.0-100.0) 11/11/25 06:35 MCH 31.1 pg (25.0-34.0) 11/11/25 06:35 MCHC 34.9 g/dL (32.0-36.0) 11/11/25 06:35 RDW Std Deviation 43.7 fL (36.4-46.3) 11/11/25 06:35 RDW Coeff of Zahida 13.3 % (11.5-14.5) 11/11/25 06:35 Plt Count 228 K/uL (130-400) 11/11/25 06:35 MPV 10.0 fL (9.4-12.4) 11/11/25 06:35 Immature Gran % (Auto) 0.3 % 11/11/25 06:35 Neut % (Auto) 82.1 % 11/11/25 06:35 Lymph % (Auto) 9.3 % 11/11/25 06:35 [place] % (Auto) 8.0 % 11/11/25 06:35 Eos % (Auto) 0.0 % 11/11/25 06:35 Baso % (Auto) 0.3 % 11/11/25 06:35 Neut # (Auto) 10.95 K/uL (1.40-6.50) H 11/11/25 06:35 Lymph # (Auto) 1.24 K/uL (1.20-3.40) 11/11/25 06:35 [place] # (Auto) 1.06 K/uL (0.11-0.59) H 11/11/25 06:35 Eos # (Auto) 0.00 K/uL (0.00-0.50) 11/11/25 06:35 Baso # (Auto) 0.04 K/uL (0.00-0.20) 11/11/25 06:35 Immature Gran # (Auto) 0.04 K/uL (0.01-0.20) 11/11/25 06:35 Sodium 139 mmol/L (136-145) 11/11/25 06:35 Potassium 3.7 mmol/L (3.5-5.1) 11/11/25 06:35 Chloride 109 mmol/L (98-107) H 11/11/25 06:35 Carbon Dioxide 24 mmol/L (21-32) 11/11/25 06:35 Anion Gap 6 (3-11) 11/11/25 06:35 BUN 12 mg/dl (6-23) 11/11/25 06:35 Creatinine 0.79 mg/dl (0.6-1.2) 11/11/25 06:35 Est Cr Clr Drug Dosing 95.3 ml/min 11/11/25 06:35 eGFR 93.37 11/11/25 06:35 BUN/Creatinine Ratio 15.2 (10-20) 11/11/25 06:35 Glucose 142 mg/dl (70-99(Fasting)) H 11/11/25 06:35 Calcium 8.4 mg/dl (8.6-10.3) L 11/11/25 06:35 Impressions Pelvis X-Ray 11/10/25 12:36 SINGLE VIEW PELVIS CLINICAL HISTORY: Postoperative examination. FINDINGS: An AP portable view of the pelvis is compared to study dated 10/14/2025. A bipolar right hip arthroplasty is in near-anatomic alignment. A single cortical lag screw is seen transfixing the acetabular cup. No acute fracture is identified. Subcutaneous gas an soft tissue swelling overlying the right hip are expected postsurgical changes. There is mild degenerative sclero sis in the sacroiliac joints. Mild degenerative change is noted in the left hip. Clips and phleboliths project over the pelvis. IMPRESSION: Expected postoperative findings status post right hip arthroplasty. No acute fracture is seen. ACT 112: Negative or not required by law. Electronically signed by: Iggy Lamas M.D. 11/10/2025 1:13 PM
[2025-11-11] MEDS ORDERED: CeleBREX 200 MG CAP PO SCH (21:00)
[2025-11-13] MEDS ORDERED: Scopolamine REMOVE TRANSDERM PATCH ONE (08:00)
--- NOTE | 2025-11-15 07:30 | Anesthesiology Progress Note ---
Date of Service November 10, 2025 Anesthesia Post Procedure Pain Intensity Right Hip: Pain Intensity: 3 Transfer of Care Handoff Completed per policy Notes Mental Status: alert / awake / arousable and participated in evaluation Patient Amnestic to Procedure: Yes Nausea / Vomiting: adequately controlled Pain: adequately controlled Airway Patency, RR, SpO2: stable & adequate BP & HR: stable & adequate Hydration State: stable & adequate Neuraxial Anesthesia: was administered and sensory block is resolving Anesthetic Complications: no major complications apparent and Pt Satisfied with anesthetic care
== END 2025-11-11 11:23 | disposition home health service (06) ==
LOC: ASU 08:53 → INTOOBSV 12:36 → 3E 12:36